=== PATIENT | female | born 1995 | race Caucasian/White ===

== ENCOUNTER 2024-01-09 19:06 | Emergency (ER) | payer OTHER, SELFPAY ==
[2024-01-09 19:13] VITALS: BP 124/77; PULSE 87; TEMP 37; O2SAT 98; BMI 31.1
[2024-01-09 20:03] LABS: Bilirubin Urine NEGATIVE (NEGATIVE); Blood Urine NEGATIVE (NEGATIVE); Clarity Urine CLEAR (CLEAR); Color Urine YELLOW (YELLOW); Glucose Urine UA NEGATIVE (NEGATIVE); Ketones Urine NEGATIVE (NEGATIVE); Leukocyte Esterase Urine NEGATIVE (NEGATIVE); Nitrite Urine NEGATIVE (NEGATIVE); Protein Urine NEGATIVE (NEG/TRACE); Specific Gravity Urine >=1.030 (1.005-1.025); Urobilinogen Urine 0.2 EU/dL (0.2-1.0); pH Urine 5.5 (5.0-9.0)
[2024-01-09 20:05] LABS: HCG Qualitative Urine* NEGATIVE (NEGATIVE); Internal Control Within Normal Limits
--- NOTE | 2024-01-09 20:06 | ED.FEMALEGU1 ---
HPI - Female Genitourinary General Chief complaint: Urogenital-Female Stated complaint: OTHER Time Seen by Provider: 01/09/24 19:21 Source: patient Mode of arrival: walk-in Limitations: no limitations History of Present Illness HPI Narrative: 28-year-old female presents here with chief complaint of blood in her nephrostomy tube. Patient states she has had this tube and is scheduled on the of this month to have the tube and stone removed. She states they will no longer take care of her because she needs $20,000 upfront in order to be taken care of. Patient states her insurance is working on finding her a different urologist. She believes urology around here may cover her insurance. Patient denies any fevers or chills. She states she had some left-sided flank pain. Patient is not uncomfortable at this time. No obvious blood in the tube at this time. Related Data Home Medications ?Medication ?Instructions ?Recorded ?Confirmed No Known Home Medications 01/09/24 01/09/24 Previous Rx's ?Medication ?Instructions ?Recorded cephalexin 500 mg capsule 500 mg PO BID 7 days #14 caps 01/09/24 Allergies Allergy/AdvReac Type Severity Reaction Status Date / Time adhesive AdvReac Redness of Verified 01/09/24 19:13 Skin Review of Systems ROS Narrative All Systems are negative except as noted/marked.All systems reviewed and otherwise negative PFSH PFSH Social History Little interest or pleasure in doing things: not at all Feeling down, depressed, or hopeless: several days Exam Narrative Exam Narrative: Nurses note and vital signs reviewed and patient is not hypoxic. General: The patient appears well and in no apparent distress. Patient is resting comfortably on cart. Skin: Warm, dry, no pallor noted. There is no rash noted. Head: Normocephalic, atraumatic Eye: Normal conjunctiva, no drainage, EOMI. PERRL Respiratory: Patient is in no distress, no accessory muscle use, lungs are clear to auscultation, no wheezing, rales or rhonchi Back: neprhostomy tube in place To left flank, non-tender, no CVA tenderness bilaterally to percussion. GI: Normal bowel sounds, no tenderness to palpation, no masses appreciated. No rebound, guarding, or rigidity noted. Musculoskeletal: The patient has no evidence of calf tenderness, no pitting edema, symmetrical pulses noted bilaterally Neurological: A&O x4, normal speech Psychiatric: Cooperative Constitutional Vital Signs, click to edit/add: Last Vital Signs Temp 98.6 F 01/09/24 19:13 Pulse 77 01/09/24 20:20 Resp 16 01/09/24 20:20 BP 99/54 01/09/24 20:20 Pulse Ox 99 01/09/24 20:20 O2 Del Method Room Air 01/09/24 19:13 Course Vital Signs Vital signs: Vital Signs Temperature 98.6 F 01/09/24 19:13 Pulse Rate 87 01/09/24 19:13 Respiratory Rate 14 01/09/24 19:13 Blood Pressure 124/77 01/09/24 19:13 Pulse Oximetry 98 01/09/24 19:13 Oxygen Delivery Method Room Air 01/09/24 19:13 Temperature 98.6 F 01/09/24 19:13 Pulse Rate 77 01/09/24 20:20 Respiratory Rate 16 01/09/24 20:20 Blood Pressure 99/54 01/09/24 20:20 Pulse Oximetry 99 01/09/24 20:20 Oxygen Delivery Method Room Air 01/09/24 19:13 MDM - Female Genitourinary MDM Narrative Medical decision making narrative: 28-year-old female presents here with chief complaint of blood in her nephrostomy tube. Patient states she has had this tube and is scheduled on the of this month to have the tube and stone removed. She states they will no longer take care of her because she needs $20,000 upfront in order to be taken care of. Patient states her insurance is working on finding her a different urologist. She believes urology around here may cover her insurance. Patient denies any fevers or chills. She states she had some left-sided flank pain. Patient is not uncomfortable at this time. No obvious blood in the tube at this time. Here to the emergency room chief complaint of noticing blood in her nephrostomy tube. Urinalysis was collected. Urine showed a small amount of white blood cells with bacteria. Patient prophylactically placed on Keflex. Patient is wanting a new urologist stating that [facility] urology is asking for $20,000 before they will remove the tube. Patient instructed to follow-up with them do not believe another urology will remove this tube. Patient is afebrile nontoxic-appearing. Going to ask her to drive to [employer]. She states she is tired of dealing with this tube. Due to a large stone. She is urinating without difficulty. Medical Records Attestation: I reviewed the patient's medical records. Lab Data Attestation: I reviewed the patient's lab results. Labs: Lab Results 01/09/24 Range/Units 19:45 Urine Color Yellow (YELLOW) Urine Clarity Clear (CLEAR) Urine pH 5.5 (5.0-9.0) Ur Specific [place] >=1.030 A (1.005-1.025) Urine Protein Negative (NEG/TRACE) mg/dL Urine Glucose (UA) Negative (NEGATIVE) mg/dL Urine Ketones Negative (NEGATIVE) mg/dL Urine Occult Blood Negative (NEGATIVE) Urine Nitrite Negative (NEGATIVE) Urine Bilirubin Negative (NEGATIVE) Urine Urobilinogen 0.2 (0.2-1.0) EU/dL Ur Leukocyte Esterase Negative (NEGATIVE) Urine RBC 0-2 (0-2) #/HPF Urine WBC 5-10 A (NONE SEEN) #/HPF Ur Squamous Epith Cells Few A (NONE/RARE) #/LPF Urine Crystals None seen (None Seen) #/HPF Urine Bacteria Small A (NONE SEEN) #/HPF Urine Casts None seen (NONE SEEN) #/LPF Urine Mucus Large A (NONE SEEN) Ur Culture Indicated? Yes Urine HCG, Qual Negative (NEGATIVE) Discharge Plan Discharge Chief Complaint: Urogenital-Female Clinical Impression: Urinary tract infection, Left nephrolithiasis Patient Disposition: Home, Self-Care Time of Disposition Decision: 20:35 Condition: Good Mode of Transportation: Private Vehicle Prescriptions / Home Meds: New cephalexin 500 mg capsule 500 mg PO BID 7 Days Qty: 14 0RF No Action No Known Home Medications Print Language: Vincentian Instructions: Kidney Stones (ED), Urinary Tract Infection in Women (ED), Nephrostomy Tube Care (ED) Referrals: Physician,Non-Staff, [Primary Care Provider] - 1 week Ismael Black MD [Physician] - 1 week Discharge Date/Time: 01/09/24 20:43
[2024-01-09 20:18] LABS: Bacteria Urine SMALL #/HPF (NONE SEEN); Cast Seen? NONE SEEN #/LPF (NONE SEEN); Crystals Seen? None Seen #/HPF (None Seen); Mucus Urine LARGE (NONE SEEN); RBC Urine 0-2 #/HPF (0-2); Squamous Epithelial Cell Urine FEW #/LPF (NONE/RARE); Urine Culture Indicated YES
[2024-01-09 20:20] VITALS: BP 99/54; PULSE 77; O2SAT 99
[2024-01-09] MEDS: KETOROLAC TROMETHAMINE 10 MG TABLET PO (20:34)
== END 2024-01-09 20:43 | disposition home or self-care (01) ==
PROVIDERS: Physician Assistant; Emergency Provider Internal Medicine
DX: N39.0 Urinary tract infection, site not specified (principal); N20.0 Calculus of kidney; Z93.6 Other artificial openings of urinary tract status
CPT/HCPCS: 81001; 84703; 87086; 99284